=== PATIENT | female | born 1980 | race Caucasian/White ===

== ENCOUNTER 2017-04-02 06:13 | Emergency (ER) | payer OTHER ==
--- NOTE | 2017-04-02 06:24 | EDPHY ---
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 Hx delivery with first baby - Social History Smoking Status: Never smoked HPI/ROS: HPI CHIEF COMPLAINT: Epigastric abdominal pain HISTORY OF PRESENT ILLNESS: This patient is a very pleasant 36-year-old female otherwise healthy does not take any daily medications she presents emergency room epigastric discomfort. She describes as sharp stabbing. It is nonradiating. It is centrally located in her epigastric region. This woke her up from sleep 45 minutes ago. She did not have any vomiting or diarrhea. The pain is now currently 2/10. At that time that it started was 6/10. This woke her up from sleep. She had associated shortness of breath with it. She denies any lower abdominal pain. Denies back pain. Denies chest pain or shortness of breath. Denies fever. She did have 1 episode of diarrhea earlier. No vomiting. Past Medical History: Denies significant medical history Past Surgical History: Egg retrieval Social History: Denies daily use drugs alcohol tobacco. Family History: Noncontributory ROS REVIEW OF SYSTEMS: A comprehensive 10 point review of systems is otherwise negative aside from elements mentioned in the history of present illness. Exam Constitutional appears well nontoxic, triage nursing summary reviewed, vital signs reviewed, awake/alert. Vital signs reviewed. Eyes normal conjunctivae and sclera, EOMI, PERRLA. HENT normal inspection, atraumatic, moist mucus membranes, no epistaxis, neck supple/ no meningismus, no raccoon eyes. Respiratory clear to auscultation bilaterally, normal breath sounds, no respiratory distress, no wheezing. Cardiovascular rate normal, regular rhythm, no murmur, no edema, distal pulses normal. Gastrointestinal soft, very mild tender palpation over the epigastric region, no rebound, no guarding, normal bowel sounds, no distension, no pulsatile mass. Genitourinary no CVA tenderness. Musculoskeletal no midline vertebral tenderness, full range of motion, no calf swelling, no tenderness of extremities, no meningismus, good pulses, neurovascularly intact. Skin pink, warm, & dry, no rash, skin atraumatic. Neurologic awake, alert and oriented x 3, AAOx3, moves all 4 extremities equally, motor intact, sensory intact, CN II-XII intact, normal cerebellar, normal vision, normal speech. Psychiatric normal mood/affect. Heme/Lymph/Immune no lymphadenopathy. Differential diagnosis includes but is not limited to and in no particular order : Bowel obstruction, appendicitis, gallbladder disease, diverticulitis, colitis , enteritis, perforated viscus, gastritis, GERD, esophagitis, urinary tract infection, pyelonephritis, kidney stones Medical Decision Making: Plan for this patient IV establishment, 1 L normal saline IV fluid bolus, GI cocktail she has declined any further pain medicine, ultrasound of her gallbladder and right upper quadrant, EKG, basic blood work including LFTs lipase and troponin. Re-evaluation: Patient signed over to Dr. Cast at 7am Shift Change. Follow-up lab work and ultrasound. EKG interpretation by me on record in [facility] system. Impression time of EKG 6:30 a.m., sinus rhythm rate of 64. I do not appreciate acute ischemic change on this EKG. Specifically no ST elevation or ST depression. No T-wave abnormalities. Unremarkable EKG. ED x-ray chest two view: negative for acute cardiopulmonary disease. Image interpreted by myself. (Burke Murrieta) Constitutional: Initial Vital Signs Temperature (C) 36.5 C 04/02/17 06:17 Heart Rate 72 04/02/17 06:17 Respiratory Rate 16 04/02/17 06:17 Blood Pressure 90/56 L 04/02/17 06:17 O2 Sat (%) 100 04/02/17 06:17 O2 Delivery Mode Room Air Allergies/Adverse Reactions: No Known Allergies Allergy (Verified 04/02/17 06:21) Home Medications: Medication Instructions Recorded Ibuprofen [Motrin (*)] 600 mg PO Q6 PRN #0 tab 01/11/16 Iron Polysacch/Iron Heme Polyp 28 mg PO BID #0 tab 01/11/16 [Bifera] Medical Decision Making - Diagnostics Imaging Results: Imaging Impressions Chest X-Ray 04/02/17 06:30 Impression: No acute pulmonary disease. ED Course/Re-evaluation: 7am-I assumed care of this patient at shift change. She presents with epigastric pain that woke her from sleep. She currently feels much better after GI cocktail. Abdomen is soft, epigastric tenderness. Ultrasound read by Dr. Summers is normal. Clinical presentation consistent with acute gastritis/GERD. No evidence of cardiopulmonary etiology. We are awaiting laboratory testing. If these blood tests are normal, I will discharge her home. Laboratory results discussed with the patient. She continues to feel much better after the GI cocktail. Abdominal pain precautions given. She was sent home with a stool specimen container and a laboratory slip for GI pathogen panel. (Devi Cast) Differential Diagnosis: Differential diagnosis includes though it is not limited to appendicitis, cholecystitis, diverticulitis, pyelonephritis, bowel perforation, small bowel obstruction. (Devi Cast) - Data Points Laboratory Results: Laboratory Results 04/02/17 06:34 04/02/17 06:34 04/02/17 04/02/17 04/02/17 06:34 06:34 06:34 WBC 7.12 10^3/uL 10^3/uL (3.80-9.50) RBC 4.36 10^6/uL 10^6/uL (4.18-5.33) Hgb 13.4 g/dL g/dL (12.6-16.3) Hct 38.0 % % (38.0-47.0) MCV 87.2 fL fL (81.5-99.8) MCH 30.7 pg pg (27.9-34.1) MCHC 35.3 g/dL g/dL (32.4-36.7) RDW 12.8 % % (11.5-15.2) Plt Count 162 10^3/uL 10^3/uL (150-400) MPV 10.7 fL fL (8.7-11.7) Neut % (Auto) 84.4 % H % (39.3-74.2) Lymph % (Auto) 9.7 % L % (15.0-45.0) Bartholomew % (Auto) 4.1 % L % (4.5-13.0) Eos % (Auto) 1.0 % % (0.6-7.6) Baso % (Auto) 0.4 % % (0.3-1.7) Nucleat RBC Rel Count 0.0 % % (0.0-0.2) Absolute Neuts (auto) 6.01 10^3/uL 10^3/uL (1.70-6.50) Absolute Lymphs (auto) 0.69 10^3/uL L 10^3/uL (1.00-3.00) Absolute Monos (auto) 0.29 10^3/uL L 10^3/uL (0.30-0.80) Absolute Eos (auto) 0.07 10^3/uL 10^3/uL (0.03-0.40) Absolute Basos (auto) 0.03 10^3/uL 10^3/uL (0.02-0.10) Absolute Nucleated RBC 0.00 10^3/uL 10^3/uL (0-0.01) Immature Gran % 0.4 % % (0.0-1.1) Immature Gran # 0.03 10^3/uL 10^3/uL (0.00-0.10) Sodium 141 mEq/L mEq/L (134-144) Potassium 3.0 mEq/L L mEq/L (3.5-5.2) Chloride 106 mEq/L mEq/L (97-110) Carbon Dioxide 24 mEq/l mEq/l (22-31) Anion Gap 11 mEq/L mEq/L (8-16) BUN 9 mg/dL mg/dL (7-23) Creatinine 0.7 mg/dL mg/dL (0.6-1.0) Estimated GFR > 60 Glucose 84 mg/dL mg/dL (70-100) Calcium 8.8 mg/dL mg/dL (8.5-10.4) Total Bilirubin 2.1 mg/dL H mg/dL (0.1-1.4) Conjugated Bilirubin 0.1 mg/dL mg/dL (0.0-0.5) Unconjugated Bilirubin 2.0 mg/dL H mg/dL (0.0-1.1) AST 21 IU/L IU/L (14-46) ALT 34 IU/L IU/L (9-52) Alkaline Phosphatase 63 IU/L IU/L (38-126) Troponin I < 0.012 ng/mL ng/mL (0.000-0.034) Total Protein 5.9 g/dL L g/dL (6.3-8.2) Albumin 4.0 g/dL g/dL (3.5-5.0) Lipase 68 IU/L IU/L (23-300) Beta HCG, Qual NEGATIVE Medications Given: Discontinued Medications Al Hydroxide/Mg Hydroxide (Maalox Susp) 30 ml PO ONCE ONE Stop: 04/02/17 06:30 Last Admin: 04/02/17 06:43 Dose: 30 ml Hyoscyamine Sulfate (Levsin, Hyomax-Sl) 0.25 mg PO ONCE ONE Stop: 04/02/17 06:30 Last Admin: 04/02/17 06:42 Dose: 0.25 mg Sodium Chloride (Ns) 1,000 mls @ 0 mls/hr IV EDNOW ONE; Wide Open PRN Reason: Protocol Stop: 04/02/17 06:30 Last Admin: 04/02/17 06:43 Dose: 1,000 mls Lidocaine (Lidocaine 2% Viscous) 15 ml PO ONCE ONE Stop: 04/02/17 06:30 Last Admin: 04/02/17 06:43 Dose: 15 ml Departure - Departure Disposition: Home, Routine, Self-Care Clinical Impression: Abdominal pain Qualifiers: Abdominal location: epigastric Qualified Code(s): R10.13 - Epigastric pain Condition: Good Instructions: Acute Abdominal Pain (ED) Additional Instructions: 1. Return emergency room if you develop worsening abdominal pain, vomiting, fever, shortness of breath or chest pain. 2. [place] diet next 24-48 hours. Do not consume spicy fatty greasy foods. 3. Take Maalox prior to meals and at bedtime. Referrals: Domitila Mendieta MD [Primary Care Provider] - 2-3 days, if not improved
[2017-04-02] MEDS ORDERED: MAG HYDROX/AL HYDROX/SIMETH 30 ML UDCUP PO ONE ×2 (06:29)
[2017-04-02] MEDS ORDERED: NS 1,000 ML IV ONE ×2 (06:29)
[2017-04-02] MEDS ORDERED: LIDOCAINE 2% VISCOUS 15 ML UDCUP PO ONE ×2 (06:29)
[2017-04-02] MEDS ORDERED: HYOSCYAMINE SULFATE 0.125 MG TAB PO ONE ×2 (06:29)
--- NOTE | 2017-04-02 06:34 | CPEKG ---
Heart Rate: 64 RR Interval: 938 P-R Interval: 144 QRSD Interval: 80 QT Interval: 412 QTC Interval: 425 P [place]: 70 QRS [place]: 54 T Wave [place]: 23 EKG Severity - BORDERLINE ECG - EKG Impression: SINUS RHYTHM EKG Impression: PROBABLE LEFT ATRIAL ABNORMALITY Electronically Signed By: Devi Cast 02-Apr-2017 14:55:06
[2017-04-02 06:42] LABS: PLATELET COUNT 162 10^3/uL (150-400)
[2017-04-02 08:03] VITALS: BP 112/69; PULSE 61; RESP 18; TEMP 99; O2SAT 99
== END 2017-04-02 08:03 | disposition home or self-care (01) ==
DX: R10.13 Epigastric pain (principal); E86.9 Volume depletion, unspecified

== ENCOUNTER → 2017-07-14 | Outpatient (CLI) | payer OTHER | LOC: FIMAGING 09:03 | PROVIDERS: ATTEND Internal Medicine | DX: N63.10 Unspecified lump in the right breast, unspecified quadrant (principal) ==

== ENCOUNTER → 2018-06-14 | Outpatient (CLI) | payer OTHER | LOC: FIMAGING 09:15 | PROVIDERS: ATTEND Obstetrics & Gynecology | DX: O09.521 Supervision of elderly multigravida, first trimester (principal); O09.811 Supervision of pregnancy resulting from assisted reproductive technology, first trimester; O09.291 Supervision of pregnancy with other poor reproductive or obstetric history, first trimester; Z3A.12 12 weeks gestation of pregnancy ==

== ENCOUNTER → 2018-07-08 | Outpatient (CLI) | payer OTHER | LOC: FIMAGING 08:50 | PROVIDERS: ATTEND Obstetrics & Gynecology | DX: O09.522 Supervision of elderly multigravida, second trimester (principal); O09.812 Supervision of pregnancy resulting from assisted reproductive technology, second trimester; Z3A.16 16 weeks gestation of pregnancy ==

== ENCOUNTER → 2018-07-26 | Outpatient (CLI) | payer OTHER | LOC: FIMAGING 08:47 | PROVIDERS: ATTEND Obstetrics & Gynecology | DX: O09.522 Supervision of elderly multigravida, second trimester (principal); O09.812 Supervision of pregnancy resulting from assisted reproductive technology, second trimester; Z3A.18 18 weeks gestation of pregnancy ==

== ENCOUNTER 2018-07-30 07:51 | Observation (INO) | payer OTHER | END 2018-07-30 09:05 | disposition home or self-care (01) | LOC: FLD 07:51 | PROVIDERS: ADMIT Obstetrics & Gynecology; ATTEND Obstetrics & Gynecology | DX: Z03.79 Encounter for other suspected maternal and fetal conditions ruled out (principal) | CPT/HCPCS: G0378 ==

== ENCOUNTER → 2018-08-05 | Outpatient (CLI) | payer OTHER | LOC: FIMAGING 09:29 | PROVIDERS: ATTEND Obstetrics & Gynecology | DX: Z36.86 Encounter for antenatal screening for cervical length (principal); Z36.89 Encounter for other specified antenatal screening; O09.522 Supervision of elderly multigravida, second trimester; O09.812 Supervision of pregnancy resulting from assisted reproductive technology, second trimester; O09.212 Supervision of pregnancy with history of pre-term labor, second trimester; Z14.8 Genetic carrier of other disease; Z3A.20 20 weeks gestation of pregnancy ==

== ENCOUNTER → 2018-08-19 | Outpatient (CLI) | payer OTHER | LOC: FIMAGING 09:01 | PROVIDERS: ATTEND Obstetrics & Gynecology | DX: O09.812 Supervision of pregnancy resulting from assisted reproductive technology, second trimester (principal); O09.522 Supervision of elderly multigravida, second trimester; O09.212 Supervision of pregnancy with history of pre-term labor, second trimester; O28.1 Abnormal biochemical finding on antenatal screening of mother; Z14.8 Genetic carrier of other disease; Z3A.22 22 weeks gestation of pregnancy ==

== ENCOUNTER → 2018-10-21 | Outpatient (CLI) | payer OTHER | LOC: FIMAGING 11:25 | PROVIDERS: ATTEND Obstetrics & Gynecology | DX: O09.523 Supervision of elderly multigravida, third trimester (principal); O09.293 Supervision of pregnancy with other poor reproductive or obstetric history, third trimester; Z3A.31 31 weeks gestation of pregnancy ==

== ENCOUNTER 2018-11-07 04:41 | Inpatient (IN) | payer OTHER | END 2018-11-10 15:00 | disposition home or self-care (01) | LOC: FLD 04:41 → FOB 11-08 21:15 ==